=== PATIENT | male | born 1995 | race Caucasian/White ===

== ENCOUNTER 2022-04-16 13:58 | Emergency (ER) | payer BC, SELFPAY ==
[2022-04-16 14:16] VITALS: BP 128/61; PULSE 79; RESP 16; TEMP 36.8; O2SAT 99
[2022-04-16 14:20] VITALS: BP 128/61; PULSE 79; RESP 16; TEMP 36.8; O2SAT 99
--- NOTE | 2022-04-16 15:06 | ED.GENADULT ---
HPI - General Adult General Chief complaint: Unspecified Stated complaint: med refill Time Seen by Provider: 04/16/22 14:40 Source: patient, RN notes reviewed and old records reviewed Mode of arrival: ambulatory Limitations: no limitations History of Present Illness HPI narrative: 26-year-old male who presents to [facility] with complaints of losing his Seroquel and states he needs emergency refill.Patient reports that he lost his prescription a couple of days ago and has not been able to get his psychiatrist at [facility] to return his call. Told him I could only give a refill of 5 tabs.Instructed him that he needs his pharmacy to call [facility] to get ahold of psychiatrist and often no refills of medications are given over the weekends. MD complaint: refill of seroquel lost bottle Related Data Home Medications Medication Instructions Recorded Confirmed fluoxetine 20 mg tablet 20 mg PO DAILY 04/16/22 04/16/22 quetiapine 50 mg tablet 50 mg PO HS 04/16/22 04/16/22 Allergies Allergy/AdvReac Type Severity Reaction Status Date / Time No Known Allergies Allergy Verified 04/16/22 14:19 Review of Systems Review of Systems: CONSTITUTIONAL: Denies fever, chills, or sweats. EYES: Denies visual changes, redness, or discharge. ENT: Denies rhinorrhea, congestion, sore throat, or otalgia. CARDIOVASCULAR: Denies chest pain, palpitations, or edema. RESPIRATORY: Denies cough or dyspnea. GASTROINTESTINAL: Denies abdominal pain, nausea, vomiting, or diarrhea. GENITOURINARY: Denies dysuria or hematuria. SKIN: Denies rash or itching. MUSCULOSKELETAL: Denies back pain, joint pain, or myalgia. NEUROLOGIC: Denies headache, numbness, or weakness. PSYCHIATRIC: Positive history of anxiety or depression.Bipolar All systems reviewed & are unremarkable except as noted in HPI and below [facility] Past Medical History Medical History (Updated 04/19/22 @ 15:41 by Shonna Zuleta NP) Anxiety and depression Bipolar 1 disorder, mixed Social History Social History (Updated 04/19/22 @ 15:41 by Shonna Zuleta NP) Smoking status: Never smoker Alcohol intake: unknown Substance use: unknown Living arrangements: with family Gender identity (if verbalized by the patient): Male Comments At time of signature, agree with nursing past medical, surgical, social and family history. There is no relevant family history pertinent to the presenting complaint Exam Narrative: GENERAL: Well-appearing, well-nourished, and in no acute distress. HEAD: Normocephalic, atraumatic. EYES: PERRLA and EOMI. ENT: Nares clear, no rhinorrhea or epistaxis. Mucous membranes moist.TM's normal, throat pink with no lesions or swelling. NECK: Supple.no lymphadenopathy CHEST: Clear to auscultation. No respiratory distress.SAO2 99% on room air HEART: Regular rate and rhythm. No murmur heard. Normal peripheral pulses. ABDOMEN: Soft, nontender, nondistended, normal active bowel sounds. EXTREMITIES: Normal range of motion. No edema. SKIN: Warm, dry, no rash. NEURO: No focal deficits. Alert and oriented x3. Course Course Level of Care: Express Care Visit Vital Signs Vital signs: Vital Signs Temperature 36.8 C 04/16/22 14:16 Pulse Rate 79 04/16/22 14:16 Respiratory Rate 16 04/16/22 14:16 Blood Pressure 128/61 04/16/22 14:16 Pulse Oximetry 99 04/16/22 14:16 Oxygen Delivery Room Air 04/16/22 14:16 Temperature 36.8 C 04/16/22 14:20 Pulse Rate 79 04/16/22 14:20 Respiratory Rate 16 04/16/22 14:20 Blood Pressure 128/61 04/16/22 14:20 Pulse Oximetry 99 04/16/22 14:20 Oxygen Delivery Room Air 04/16/22 14:20 Medical Decision Making Differential Diagnosis Differential Diagnosis: need for medication refill, loss of medication reported, history of anxiety and depression and bipolar Medical Records Medical records reviewed: Yes I reviewed the external patient's medical records. Vital Signs Vital Signs: Vital Signs
== END 2022-04-16 15:18 | disposition home or self-care (01) ==
PROVIDERS: Emergency Provider Registered Nurse
DX: Z76.0 Encounter for issue of repeat prescription (principal); F31.9 Bipolar disorder, unspecified; F41.9 Anxiety disorder, unspecified
CPT/HCPCS: 99203; G0463

== ENCOUNTER 2024-12-28 18:07 | Emergency (ER) | payer SELFPAY ==
--- OUTSIDE RECORDS SUMMARY | 2024-12-28 18:11 | XMS_ITS | Patient Health Record ---
Author Organization [facility] Address [address] [place] [address] Care Team Providers Care Senior Financial Accountant Name Role Phone Rosalio Link Primary Care Provider Aspen Cabello Unavailable [phone] Alysha Ross Unavailable [phone] Scot Ayers Unavailable [phone] Lexi Reich Unavailable [phone] Karla Sarabia Unavailable Marie Benavides Unavailable [phone] Allergies No Known Allergies Results Component Value Reference Range Notes 12 Panel Urine Drug Screen Reviewed date:01/25/2024 02:32:46 PM Interpretation: Performing Lab: Notes/Report: THC neg NEYDA neg MOP (OPI) neg AMP neg MET neg BAR neg BZO neg MDMA neg MTD neg OXY neg PCP neg BUP POS Renal Panel (10) Reviewed date:01/25/2024 02:32:46 PM Interpretation: Performing Lab:[facility], [address] [facility], Phone - [phone], Director - PhrmD[facility]tek Notes/Report: Glucose 126 70-99 mg/dL BUN 15 6-20 mg/dL Creatinine 1.30 0.76-1.27 mg/dL eGFR 76 >59 mL/min/1.73 BUN/Creatinine Ratio 12 9-20 Sodium 139 134-144 mmol/L Potassium 4.3 3.5-5.2 mmol/L Chloride 100 96-106 mmol/L Carbon Dioxide, Total 22 20-29 mmol/L Calcium 10.0 8.7-10.2 mg/dL Phosphorus 3.3 2.8-4.1 mg/dL Albumin 5.1 4.3-5.2 g/dL Medication Assisted Treatmen t (MAT) Buprenorphine, Norbuprenorphine, and Naloxone MS Confirmation, Urine Reviewed date:01/25/2024 02:32:46 PM Interpretation: Performing Lab:[facility], [address] [place] [address], Phone - [phone], Director - [facility] Notes/Report: Creatinine 60 Note: Sample is inconsistent with human urine. Testing Threshold: buprenorphine, 1.0 ng/mL norbuprenorphine, 5.0 ng/mL naloxone, 10 ng/mL This test was developed and its performance characteristics determined by [facility]. It has not been cleared or approved by the Food and Drug Administration. REFERENCE RANGE: Ref Range>=20 BUPRENORPHINE ++POSITIVE++ Buprenorphine >1667 Norbuprenorphine 98 N/B Ratio <0.06 >=0.3 A Norbuprenorphine/Bupreno rphine ratio <0.30 in conjunction with buprenorphine concentrations >1000 ng/mL should be interpreted with caution, as this may result from adding the drug to the sample exogenously (pill dipping). Norbuprenorphine/Bupreno rphine ratios <0.03 are highly suspect. OPIATE ANTAGONIST ++POSITIVE++ Naloxone >1667 UA/M w/rflx Culture, Routine Reviewed date:01/25/2024 02:32:46 PM Interpretation: Performing Lab:[facility], [address] [place] [address], Phone - [phone], Director - [facility] Notes/Report: Specific Phenix 1.011 1.005-1.030 pH 7.5 5.0-7.5 Urine-Color Yellow Yellow Appearance Clear Clear WBC Esterase Negative Negative Protein Negative Negative/Trace Glucose Negative Negative Ketones Negative Negative Occult Blood Negative Negative Bilirubin Negative Negative Urobilinogen,Semi-Qn 0.2 0.2-1.0 mg/dL Nitrite, Urine Positive Negative Microscopic Examination See below: Micr oscopic was indicated and was performed. Urinalysis Reflex This speci men has reflexed to a Urine Culture. WBC None seen 0 - 5 /hpf RBC None seen 0 - 2 /hpf Epithelial Cells (non renal) None seen 0 - 10 /hpf Casts None seen None seen /lpf Crystals Present N/A Crystal Type Calcium Phosphate N/A Mucus Threads Present Not Estab. Bacteria Few None seen/Few Urine Culture, Routine Final report Result 1 No growth Renal Panel (10) Reviewed date:07/04/2024 02:56:06 PM Interpretation: Performing Lab:[facility] [address] [place] [address], Phone - [phone], Director - [facility] Notes/Report: Glucose 103 70-99 mg/dL BUN 11 6-20 mg/dL Creatinine 1.19 0.76-1.27 mg/dL eGFR 84 >59 mL/min/1.73 BUN/Creatinine Ratio 9 9-20 Sodium 139 134-144 mmol/L Potassium 5.1 3.5-5.2 mmol/L Chloride 99 96-106 mmol/L Carbon Dioxide, Total 25 20-29 mmol/L Calcium 9.9 8.7-10.2 mg/dL Phosphorus 2.8 2.8-4.1 mg/dL Albumin 4.6 4.3-5.2 g/dL Hepatitis B Surface Antigen (HBsAg Screen) Reviewed date:07/04/2024 02:56:17 PM Interpretation: Performing Lab:[facility] [address] [place] [address], Phone - [phone], Director - [facility] Notes/Report: HBsAg Screen Negative Negative Hepatitis C Virus Antibody w /Rflx to Quantitative Real-time PCR ([id number]) Reviewed date:07/04/2024 02:56:28 PM Interpretation: Performing Lab:[facility] [address], Phone - [phone], Director - [facility] Notes/Report: HCV Ab Non Reactive Non Reactive Interpretation: Not infected with HCV unless early or acute infection is suspected (which may be delayed in an immunocompromised individual), or other evidence exists to indicate HCV infection. HIV Screen *HIV 1, 2 Ab, p24 Ag ([id number]) Reviewed date:07/04/2024 02:56:39 PM Interpretation: Performing Lab:[facility] [address], Phone - [phone], [facility] Notes/Report: HIV Ab/p24 Ag Screen Non Reactive Non Reactive HIV-1/HIV-2 antibodies and HIV-1 p24 antigen were NOT detected. There is no laboratory evidence of HIV infection. HIV Negative Rapid Plasma Reagin (RPR) Te st With Reflex to Quantitative RPR and Confirmatory Treponema pallidum Antibodies Reviewed date:07/04/2024 02:56:59 PM Interpretation: Performing Lab:[facility], [address] [facility], Phone - [phone], Director - [facility] Notes/Report: RPR Non Reactive Non Reactive Herpes Simplex Virus Types 1 and 2 -specific Antibodies, IgG Reviewed date:07/04/2024 02:56:49 PM Interpretation: Performing Lab:[facility], [address] [facility], Phone - [phone], Director - [facility] Notes/Report: HSV 1 IgG, Type Spec 38.40 0.00-0.90 index Negative <0.91 Equivocal 0.91 - 1.09 Positive >1.09 Note: Negative indicates no antibodies detected to HSV-1. Equivocal may suggest early infection. If clinically appropriate, retest at later date. Positive indicates antibodies detected to HSV-1. Effective May 06, 2024 the reference interval will be changing to: Non Reactive. HSV 2 IgG, Type Spec <0.91 0.00-0.90 index Negative <0.91 Equivocal 0.91 - 1.09 Positive >1.09 HSV-2 Antibody Interpretation: Current guidelines and recommendations do not recommend routine screening for HSV-2 in asymptomatic individuals, including those that are . A negative antibody result indicates no detectable antibodies to HSV-2 were found. If recent exposure is suspected, retest in 4 to 6 weeks. Equivocal samples should be retested in 4 to 6 weeks. A positive result indicates the presence of detectable IgG antibody to HSV-2. FALSE POSITIVE RESULTS MAY OCCUR. Repeat testing, or testing by a different method, may be indicated in some settings (e.g. patients with low likelihood of HSV infection). If clinically appropriate, retest 4 to 6 weeks later. HSV-2 IgG antibody testing results should be clinically correlated. Effective May 06, 2024 the reference interval will be changing to: Non Reactive. 12 Panel Urine Drug Screen Reviewed date:02/23/2024 08:29:09 AM Interpretation: Performing Lab: Notes/Report: THC POS NEYDA neg MOP (OPI) neg AMP neg MET neg BAR neg BZO neg MDMA neg MTD neg OXY neg PCP neg BUP POS 12 Panel Urine Drug Screen Reviewed date:10/09/2024 03:17:40 PM Interpretation: Performing Lab: Notes/Report: THC neg NEYDA neg MOP (OPI) neg AMP neg MET neg BAR neg BZO neg MDMA neg MTD neg OXY neg PCP neg BUP POS Buprenorphine and Metabolite (Urine test) Reviewed date:03/01/2024 09:19:19 AM Interpretation: Performing Lab:[facility], [address] [facility], [place], Phone - [phone], Director - PhDAbudaishwarya Notes/Report: Clinical Information:[id number] Buprenorphine Positive Confirmation p erformed by Mass Spectrometry Buprenorphine Positive Buprenorphine Conf, MS, UR 123 Cutoff=10 ng/m L Norbuprenorphine Positive Norbuprenorphine Conf, MS, UR 238 Cutoff=10 ng/mL Medication Assisted Treatmen t (MAT) Buprenorphine, Norbuprenorphine, and Naloxone MS Confirmation, Urine Reviewed date:03/04/2024 03:42:18 PM Interpretation: Performing Lab:[facility], [address] [place] [address], Phone - [phone], Director - Luci Notes/Report: Creatinine 76 Testing Threshold: buprenorphine, 1.0 ng/mL norbuprenorphine, 5.0 ng/mL naloxone, 10 ng/mL This test was developed and its performance characteristics determined by [facility]. It has not been cleared or approved by the Food and Drug Administration. REFERENCE RANGE: Ref Range>=20 BUPRENORPHINE ++POSITIVE++ Buprenorphine 25 Norbuprenorphine 129 N/B Ratio 5.16 >=0.3 OPIATE ANTAGONIST ++POSITIVE++ Naloxone 63 12 Panel Urine Drug Screen Reviewed date:08/08/2024 02:38:51 PM Interpretation: Performing Lab: Notes/Report: THC neg NEYDA neg MOP (OPI) neg AMP neg MET neg BAR neg BZO neg MDMA neg MTD neg OXY neg PCP neg BUP POS 12 Panel Urine Drug Screen Reviewed date:10/31/2024 02:30:14 PM Interpretation: Performing Lab: Notes/Report: THC neg NEYDA neg MOP (OPI) neg AMP neg MET neg BAR neg BZO neg MDMA neg MTD neg OXY neg PCP neg BUP POS 12 Panel Urine Drug Screen Reviewed date:12/02/2024 02:08:12 PM Interpretation: Performing Lab: Notes/Report: THC neg NEYDA neg MOP (OPI) neg AMP neg MET neg BAR neg BZO neg MDMA neg MTD neg OXY neg PCP neg BUP POS Buprenorphine and Metabolite (Urine test) Reviewed date:12/05/2024 02:04:44 PM Interpretation: Performing Lab:[facility], [address], [facility], Phone - [phone], Director - PhDAbudu Notes/Report: Clinical Information:CCU:[id number] Buprenorphine Positive Confirmation p erformed by Mass Spectrometry Buprenorphine Positive Buprenorphine Conf, MS, UR 112 Cutoff=10 ng/m L Norbuprenorphine Positive Norbuprenorphine Conf, MS, UR 444 Cutoff=10 ng/mL 12 Panel Urine Drug Screen Reviewed date:07/01/2024 01:24:20 PM Interpretation: Performing Lab: Notes/Report: THC neg NEYDA neg MOP (OPI) neg AMP neg MET neg BAR neg BZO neg MDMA neg MTD neg OXY neg PCP neg BUP POS 12 Panel Urine Drug Screen Reviewed date:02/15/2024 08:23:29 AM Interpretation: Performing Lab: Notes/Report: THC POS NEYDA neg MOP (OPI) neg AMP neg MET neg BAR neg BZO neg MDMA neg MTD neg OXY neg PCP neg BUP POS 12 Panel Urine Drug Screen Reviewed date:09/11/2024 02:10:11 PM Interpretation: Performing Lab: Notes/Report: THC neg NEYDA neg MOP (OPI) neg AMP neg MET neg BAR neg BZO neg MDMA neg MTD neg OXY neg PCP neg BUP POS 12 Panel Urine Drug Screen Reviewed date:03/22/2024 02:11:44 PM Interpretation: Performing Lab: Notes/Report: THC neg NEYDA neg MOP (OPI) neg AMP neg MET neg BAR neg BZO neg MDMA neg MTD neg OXY neg PCP neg BUP POS Reason For Referral Reason ANGER, ANXIETY, STRE SS DUE TO WORK, FAMILY, RELATIONSHIP ISSUES Diagnosis 1 Generalized anxiety disorder (F41.1) Referral Organization [facility] Referring Provider First Name Lexi Referring Provider Last Name Damir Referring Provider Speciality Behavioral Health Referred Provider Specialty [facility] Clinical Notes Deedee Clifford 04/03/2024 02:42:21 PM >spoke with client and provided them the information to initiate therapy. Client was receptive and understood the instructions Referral Priority Routine Medications Medication SIG (Take, Route, Frequency, Duration) Notes Start Date End Date Status Narcan 4 MG/0.1ML 4mg as needed for op ioid overdose Nasally once 05/22/2023 Active Buprenorphine HCl-Naloxone HCl 8-2 MG 1 film under the tongue and allow to dissolve Sublingual THREE TIMES DAILY 12/02/2024 Active Docusate Sodium 100 MG 1 capsule as need ed Orally Once a day for 30 day(s) 12/02/2024 Active SEROquel 100 MG 1 tablet at bedtime Orally Once a day Active Ibuprofen 600 MG 1 tablet with food or milk as needed FOR PAIN Orally Three times a day As needed pain 05/22/2023 Active Nicotine Step 2 14 MG/24HR 1 patch to sk in Transdermal Once a day for 30 day(s) 12/02/2024 Active Tadalafil 5 MG 1 tablet as needed Orally Once a day for 30 days As needed at least 1-2 hours prior to sexual activity 10/04/2023 Active FLUoxetine HCl 20 MG 1 capsule Orally On ce a day for 30 days Active Social History Tobacco Use: Social History Observation Description Date Details (start date - stop date) Never Smoker NA - NA Sex Assigned At : Social History Observation Description Sex Assigned At Male PRAPARE Question Answer Notes Date Completed/Updated: 03/22/2024 What is your current housing situation? I have h ousing Are you worried about losing your housing? No What is the highest level of school that you have finished? 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 Check all that apply I do not have problems meeting my needs Has lack of transportation k ept you from medical appointments, meetings, work or from getting things needed for daily living? No How often do you see or talk to people that you care about and feel close to? (For example: talking to friends on the phone, visiting friends or family, going to yarsani or club meetings) More than 5 times a week How stressed are you? Stress is when someone feels tense, nervous, anxious, or can\t sleep at night because their mind is troubled Not at all In the past year have you sp ent more than 2 nights in a row in a long term, jail, correction center, or juvenile correctional facility? No Are you a refugee? No What country are you from? [place] Do you feel physically and e motionally safe where you currently live? Yes In the past year, have you b een afraid of your partner or ex-partner? No PRAPARE Score: 1 Tobacco Control (Standard) Question Answer Notes Tobacco use: Nonsmoker Section Notes: Problems Problem Type SNOMED Code ICD Code Onset Dates Problem Status W/U Status Risk Notes Problem Tobacco user (809628287) Nicotine dependence, unspecified, uncomplicated (F17.200) Active confirmed Problem Generalized anxiety disorder (53981427) Generalized anxiety disorder (F41.1) Active confirmed Problem 33472234 Tobacco dependence (F17.200) 021 Active confirmed chews, no smoking Problem Erectile dysfunction (643276367) Erectile dysfunction (N52.9) Active confirmed Problem Constipation (70882692) Constipation (K59.00) Active confirmed Problem Overweight (149647442) Over weight (E66.3) Active confirmed Problem Physical examination, complete (68090135) Physical exam (Z00.00) Active confirmed Problem Depressed (65116372) Depressed (F32.9) Active confirmed MDD vs Bipolar Affective Disorder Problem 712230971 Sleep difficulties (G47.9) Active confirmed Problem Methamphetamine abuse (629004222) 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 Problem Opioid abuse (7814086) Opiate abuse, episodic (F11.10) Active confirmed Problem Tobacco use (135207766) Tobacco use disorder (F17.200) Active confirmed Problem Opioid use disorder (7995977597) Opioid use disorder (F11.99) Active confirmed Problem 656650883 Cannabis-related disorder (F12.99) Active confirmed Problem 3503906 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 Problem chronic kidney disease stage 3a (disorder) (175766487) CKD stage G3a/A1, GFR 45-59 and albumin creatinine ratio <30 mg/g (N18.31) Active confirmed Vital Signs Heart Rate 80 /min 12/02/2024 Temperature 98.1 degrees Fahrenheit 12/02/2024 Respiratory Rate 16 /min 12/02/2024 Oximetry 97 % 12/02/2024 Blood pressure diastolic 72 mm Hg 12/02/2024 Height 71 in in 12/02/2024 Blood pressure systolic 110 mm Hg 12/02/2024 Weight 182.4 lbs 12/02/2024 BMI 25.44 kg/m2 12/02/2024 Encounters Encounter Location Date Provider Diagnosis [address] [address] 04/03/2024 Rosalio Link [address] [address] 01/15/2024 Rosalio Link Opioid use with opioid-induced disorder F11.99 ; CKD stage G3a/A1, GFR 45-59 and albumin creatinine ratio <30 mg/g N18.31 and Erectile dysfunction N52.[address] [address] 02/08/2024 Rosalio Link Nicotine dependence, unspecified, uncomplicated F17.200 and Opioid use with opioid-induced disorder F11.[address] [address] 02/15/2024 Marie Benavides Opioid use with opioid-induced disorder F11.99 ; Overweight (BMI 25.0-29.9) E66.3 and Nicotine dependence, unspecified, uncomplicated F17.[address] [address] 02/15/2024 Lexi Reich [address] [address] 02/23/2024 Alysha Ross Opioid use with opioid-induced disorder F11.99 ; Overweight (BMI 25.0-29.9) E66.3 and Tobacco use disorder F17.[address] [address] 02/23/2024 Lexi Reich [address] [address] 03/13/2024 Rosalio Link Nicotine dependence, unspecified, uncomplicated F17.200 ; Tendonitis M77.9 and Erectile dysfunction N52.[address] [address] 03/22/2024 Scot Ayers Opioid use disorder F11.99 and Nicotine dependence, unspecified, uncomplicated F17.[address] [place] [address] 03/22/2024 Lexi Reich [address] [address] 04/03/2024 Rosalio Link Generalized anxiety disorder F41.1 ; Exposure to potential infection Z20.9 ; CKD stage G3a/A1, GFR 45-59 and albumin creatinine ratio <30 mg/g N18.31 and Nutritional counseling Z71.3 [address] [place] [address] 04/12/2024 Rosalio Link Opioid use with opioid-induced disorder F11.[address] [place] [address] 05/22/2024 Rosalio Link Opioid use with opioid-induced disorder F11.[address] [address] 07/01/2024 Marie Szlufik Opioid use with opioid-induced disorder F11.99 and Nicotine dependence, unspecified, uncomplicated F17.[address] [address] 08/08/2024 Marie Szlufik Opioid use with opioid-induced disorder F11.[address] [place] [address] 09/11/2024 Rosalio Nikolay Opioid use with opioid-induced disorder F11.99 ; Sleep difficulties G47.9 ; Tendonitis M77.9 and Erectile dysfunction N52.[address] [place] [address] 10/09/2024 Marie Szlufik Opioid use disorder F11.99 [facility] [address] [place] [address] 10/31/2024 Rosalio Link Opioid use with opioid-induced disorder F11.99 ; Over weight E66.3 and Opioid use disorder F11.99 [facility] [address] [place] [address] 12/02/2024 Karla Sarabia Opioid use disorder F11.99 and Nicotine dependence, unspecified, uncomplicated F17.200 [facility] [address] [place] [address] 01/09/[address] [place] [address] 02/05/2024 [facility] [address] [place] [address] 04/12/[address] [place] [address] 05/09/2024 [facility] [address] [place] [address] 08/08/2024 Marie Benavides Assessments Encounter Date Diagnosis (ICD Code) Assessment Notes Treatment Notes Treatment Clinical Notes Section Notes 01/15/2024 Opioid use with opioid-induced disorder (ICD-10 - F11.99) 01/15/2024 CKD stage G3a/A1, GFR 45-59 and albumin creatinine ratio <30 mg/g (ICD-10 - N18.31) 02/08/2024 Nicotine dependence, unspecified, uncomplicated (ICD-10 - F17.200) 02/08/2024 Opioid use with opioid-induced disorder (ICD-10 - F11.99) WILL NEED ONE WEEK F/U WITH MAT SEND-OUT URINE 02/15/2024 Overweight (BMI 25.0-29.9) (ICD-10 - E66.3) 02/15/2024 Opioid use with opioid-induced disorder (ICD-10 - F11.99) 02/23/2024 Overweight (BMI 25.0-29.9) (ICD-10 - E66.3) 03/13/2024 Tendonitis (ICD-10 - M77.9) 03/22/2024 Nicotine dependence, unspecified, uncomplicated (ICD-10 - F17.200) 03/22/2024 Opioid use disorder (ICD-10 - F11.99) 04/03/2024 Generalized anxiety disorder (ICD-10 - F41.1) 02/23/2024 Opioid use with opioid-induced disorder (ICD-10 - F11.99) 03/13/2024 Nicotine dependence, unspecified, uncomplicated (ICD-10 - F17.200) 04/03/2024 Exposure to potential infection (ICD-10 - Z20.9) 04/12/2024 Opioid use with opioid-induced disorder (ICD-10 - F11.99) 05/22/2024 Opioid use with opioid-induced disorder (ICD-10 - F11.99) 07/01/2024 Nicotine dependence, unspecified, uncomplicated (ICD-10 - F17.200) 07/01/2024 Opioid use with opioid-induced disorder (ICD-10 - F11.99) 08/08/2024 Opioid use with opioid-induced disorder (ICD-10 - F11.99) 09/11/2024 Opioid use with opioid-induced disorder (ICD-10 - F11.99) 10/09/2024 Opioid use disorder (ICD-10 - F11.99) 09/11/2024 Sleep difficulties (ICD-10 - G47.9) 10/31/2024 Opioid use with opioid-induced disorder (ICD-10 - F11.99) 12/02/2024 Opioid use disorder (ICD-10 - F11.99) 12/02/2024 Nicotine dependence, unspecified, uncomplicated (ICD-10 - F17.200) 09/11/2024 Tendonitis (ICD-10 - M77.9) 10/31/2024 Over weight (ICD-10 - E66.3) 04/03/2024 CKD stage G3a/A1, GFR 45-59 and albumin creatinine ratio <30 mg/g (ICD-10 - N18.31) 03/13/2024 Erectile dysfunction (ICD-10 - N52.9) 02/23/2024 Tobacco use disorder (ICD-10 - F17.200) 02/15/2024 Nicotine dependence, unspecified, uncomplicated (ICD-10 - F17.200) 01/15/2024 Erectile dysfunction (ICD-10 - N52.9) 04/03/2024 Nutritional counseling (ICD-10 - Z71.3) 09/11/2024 Erectile dysfunction (ICD-10 - N52.9) 10/31/2024 Opioid use disorder (ICD-10 - F11.99) 02/15/2024 Other Client agrees to take medication as prescribed. Discussed medication side effects, adverse effects, risks, benefits, as well as interactions. Encouraged non-use of opioids and other illicit substances. Has naloxone. Understand that discontinuing buprenorphine increases the risk of overdose upon return to illicit opioid use. Know that that use of alcohol or benzodiazepines with buprenorphine increases the risk of overdose and . Education provided about safe storage of medications. Encourage participation in recovery groups/counseling services. Contact office with questions or concerns. 02/15/2024 Other Provided case management services to address social determinants of health needs and reduce barriers to health care services. 02/23/2024 Other Client agrees to take medication as prescribed. Discussed medication side effects, adverse effects, risks, benefits, as well as interactions. Encouraged non-use of opioids. Has naloxone. Recommended participation in recovery groups/counseling services. Agrees to contact office with questions or concerns. 02/23/2024 Other Provided case management services to address social determinants of health needs and reduce barriers to health care services. 03/22/2024 Other Provided case management services to address social determinants of health needs and reduce barriers to health care services. 05/22/2024 Other Agreed to complete [employer] papers for work due to intermittent issues with CTS and tendonitis. He will email them from at his job. 07/01/2024 Other Patient agrees to take medication as prescribed. Discussed medication side effects, adverse effects, risks, benefits, as well as interactions. Encouraged non-use of opioids and other illicit substances. Has naloxone. Discontinuing buprenorphine increases the risk of overdose upon return to illicit opioid use. Use of alcohol or benzodiazepines with buprenorphine increases the risk of overdose and . Education provided about safe storage of medications. Encouraged participation in recovery groups/counseling services. Contact office with questions or concerns. 08/08/2024 Other Patient agrees to take medication as prescribed. Discussed medication side effects, adverse effects, risks, benefits, as well as interactions. Encouraged non-use of opioids and other illicit substances. Has naloxone. Discontinuing buprenorphine increases the risk of overdose upon return to illicit opioid use. Use of alcohol or benzodiazepines with buprenorphine increases the risk of overdose and . Education provided about safe storage of medications. Encouraged participation in recovery groups/counseling services. Contact office with questions or concerns. 10/09/2024 Other Patient agrees to take medication as prescribed. Discussed medication side effects, adverse effects, risks, benefits, as well as interactions. Encouraged non-use of opioids and other illicit substances. Has naloxone. Discontinuing buprenorphine increases the risk of overdose upon return to illicit opioid use. Use of alcohol or benzodiazepines with buprenorphine increases the risk of overdose and . Education provided about safe storage of medications. Encouraged participation in recovery groups/counseling services. Contact office with questions or concerns. Patient may self-administer their own medications or may self-administer their own oral medications per [place] Protocol. 12/02/2024 Other Patient agrees to take medication as prescribed. Discussed medication side effects, adverse effects, risks, benefits, as well as interactions. Encouraged non-use of opioids. Encouraged participation in recovery groups. Patient may contact office with questions or concerns. Plan Of Treatment No Information Insurance Providers Payer Name Payer Address Payer Phone Subscriber Number Group Number Insured Name Patient Relationship to Insured Coverage Start Date Coverage End Date [facility] Plan [address] [place] [id number] [employer] - patient is the insured 1 [employer] [facility] [address] [place] [address] [id number] [employer] Self - patient is the insured [address] [address] [id number] 2 [employer] Self - patient is the insured 1 Medical (General) History Medical History History ICD Code Substance Use disorder Bipolar Surgical History Surgery Date(Month/Year) ORIF Jaw Hospitalization History Reason Date(Month/Year) Denies
--- OUTSIDE RECORDS SUMMARY | 2024-12-28 18:11 | XMS_ITS | Clinical Summary ---
Author Organization [facility] Address [address] [place] [address] Care Team Providers Care Furnace Maintenance Name Role Phone Miscellaneous, Not In File Primary Care Provider Unavailable Allergies No known active allergies Medications traMADoL (ULTRAM) 50 mg tabletIndicati ons:De Quervain's tenosynovitis, left,Left median nerve neuropathy Take 1 tablet (50 mg total) by mouth every 6 (six) hours P.r.n. pain not relieved by Medrol Dosepak alone. Take 500 mg to 650 mg of acetaminophen with each dose. Take with food. 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 Open fracture of symphysis of body of mandible 0 03/27/2015 Poisoning by methamphetamines Pneumonia of both lungs due to infectious organi sm Immunizations Immunization Administration Dates Next Due Tdap 06/26/2022 Surgical History Surgery Date Site/Laterality Comments PA OPEN TX MANDIBULAR FX W/INTERDENTAL FIXATION Open Treatment Of Mandibular Frac With Interdental Fixation - (Added by TW Conv) Social History Tobacco Use Types Packs/Day Years Used Date Smoking Tobacco: Former Cigarettes Smokeless Tobacco: Never Alcohol Use Standard Drinks/Week Comments No 0 (1 standard drink = 0.6 oz pur e alcohol) Personal Safety Answer Date Recorded Have you ever been in or are you currently in a harmful physical or emotional relationship or is someone making you feel afraid or unsafe? Denies 08/11/2024 Sex and Gender Information Value Date Recorded Sex Assigned at Not on file Legal Sex Male 8:39 AM CONSTRUCTION MANAGER Gender Identity Not on file Sexual Orientation Not on file Obstetrics History Last Filed Vital Signs Vital Sign Reading Time Taken Comments Blood Pressure 130/109 08/11/2024 3:35 PM CONSTRUCTION MANAGER Pulse 91 08/11/2024 3:35 PM CONSTRUCTION MANAGER Temperature 36.7 C (98 F) 08/11/2024 3:35 PM CONSTRUCTION MANAGER Respiratory Rate 19 08/11/2024 3:35 PM CONSTRUCTION MANAGER Oxygen Saturation 96% 08/11/2024 3:35 PM CONSTRUCTION MANAGER Inhaled Oxygen Concentration - - Weight 83.9 kg (185 lb) 08/03/2024 3:48 AM CONSTRUCTION MANAGER Height 182.9 cm (6') 06/05/2024 7:13 AM CONSTRUCTION MANAGER Body Mass Index 25.09 06/05/2024 7:13 AM CONSTRUCTION MANAGER Plan of Treatment Health Maintenance Due Date Last Done Comments Depression Screening 1993 Hepatitis C Screening 1993 Varicella Vaccines (1 of 2 - 13+ 2-dose series) 2006 HPV Vaccines (3 - Male 3-dose series) 09/25/2010 05/25/2010, 03/25/2010 Regular Well Visit/Exam 18-64 11/24/2011 Influenza Vaccine (Season Ended) 2025 05/25/2010 DTaP/Tdap/Td Vaccine (8 - Td or Tdap) 06/26/2032 06/26/2022, 09/17/2009, 12/25/1998, Additional history exists Hepatitis B Screening Completed 03/21/1994 , 01/24/1994, 1993 Pneumococcal vaccine <65 Aged Out No longer eligible based on patient's age to complete this topic Insurance [facility] MEDICAID IDPA [facility] MEDICAID ANTHEM ACCESS CHOICE IDPA [facility] PLAN JARRETT GUERRA [id number] Advance Directives For more information, please contact: [phone] * Full Code (Latest Code Status on File) Date Activated Date Inactivated Comments 04/02/2018 6:08 PM 04/11/2018 12:23 PM Care Teams Furnace Maintenance Relationship Specialty Start Date End Date Miscellaneous, Not In File PCP - General 12/30/22
--- OUTSIDE RECORDS SUMMARY | 2024-12-28 18:11 | XMS_ITS | Clinical Summary ---
Author Organization [facility] Address [address] [place] [address] Phone Care Team Providers Care High Pressure Cleaner Name Role Phone Provider, None Primary Care Provider Unavailabl e Allergies No known active allergies Medications No known medications Social History Tobacco Use Types Packs/Day Years Used Date Smoking Tobacco: Former Cigarettes Smokeless Tobacco: Never Tobacco Cessation:Counseling Given: Not Answered Alcohol Use Standard Drinks/Week Comments No 0 (1 standard drink = 0.6 oz pur e alcohol) Sex and Gender Information Value Date Recorded Sex Assigned at Not on file Legal Sex Male 9:13 PM CDT Gender Identity Not on file Sexual Orientation Not on file Last Filed Vital Signs Vital Sign Reading Time Taken Comments Blood Pressure 145/75 09/12/2022 12:00 PM PHYSICAL THERAPIST TECHNICIAN Pulse 98 09/12/2022 12:00 PM PHYSICAL THERAPIST TECHNICIAN Temperature 37 C (98.6 F) 09/12/2022 12:00 PM PHYSICAL THERAPIST TECHNICIAN Respiratory Rate 20 09/12/2022 12:00 PM PHYSICAL THERAPIST TECHNICIAN Oxygen Saturation 100% 09/12/2022 12:00 PM PHYSICAL THERAPIST TECHNICIAN Inhaled Oxygen Concentration - - Weight 77.1 kg (170 lb) 09/12/2022 7:05 AM PHYSICAL THERAPIST TECHNICIAN Height 182.9 cm (6') 09/12/2022 7:05 AM PHYSICAL THERAPIST TECHNICIAN Body Mass Index 23.06 09/12/2022 7:05 AM PHYSICAL THERAPIST TECHNICIAN Plan of Treatment Not on file Insurance MEDICAID [place] Care Teams High Pressure Cleaner Relationship Specialty Start Date End Date Provider, None ANDREA PCP - General 07/06/16
--- OUTSIDE RECORDS SUMMARY | 2024-12-28 18:11 | XMS_ITS | Referral Summary ---
Author Organization [facility] Address [address] [place] [address] Care Team Providers Care Analysis Internship Name Role Phone Miscellaneous, Not In File [...] Immunization Administration Dates Next Due Tdap 06/26/2022 Social History Tobacco Use Types Packs/Day Years [...] on file Legal Sex Male 8:39 AM FREIGHT RATE CLERK Gender Identity Not on file Sexual Orientation Not on file Last Filed Vital Signs Vital Sign Reading Time Taken Comments Blood Pressure 130/109 08/11/2024 3:35 PM FREIGHT RATE CLERK Pulse 91 08/11/2024 3:35 PM FREIGHT RATE CLERK Temperature 36.7 C (98 F) 08/11/2024 3:35 PM FREIGHT RATE CLERK Respiratory Rate 19 08/11/2024 3:35 PM FREIGHT RATE CLERK Oxygen Saturation 96% 08/11/2024 3:35 PM FREIGHT RATE CLERK Inhaled Oxygen Concentration - - Weight 83.9 kg (185 lb) 08/03/2024 3:48 AM FREIGHT RATE CLERK Height 182.9 cm (6') 06/05/2024 7:13 AM FREIGHT RATE CLERK Body Mass Index 25.09 06/05/2024 7:13 AM FREIGHT RATE CLERK Plan of Treatment Not on file Insurance [facility] MEDICAID IDPA [facility] MEDICAID ANTHEM ACCESS CHOICE IDPA [facility] PLAN Advance Directives For more information, please contact: [phone] * Full Code (Latest Code Status on File) Date Activated Date Inactivated Comments 04/02/2018 6:08 PM 04/11/2018 12:23 PM Care Teams Analysis Internship Relationship Specialty Start Date End Date Miscellaneous, Not In File PCP - General 12/30/22
--- OUTSIDE RECORDS SUMMARY | 2024-12-28 18:11 | XMS_ITS | Patient Health Record ---
Author Organization [employer] [facility] Address [address] [place] [address] Support Name Relationship Address Phone Gary Good Guarantor Unknown [phone] Allergies No Known Allergies Reason For Referral No Information Social History Tobacco Use: Social History Observation Description Date Details (start date - stop date) Never Smoker NA - NA Smoking Question Answer Notes Smoking Status: nonsmoker Plan Of Treatment Pending Test Test Name Order Date Urinalysis, Routine 07/26/2021 Vision Screening 07/26/2021 Hearing Screening 07/26/2021 PFT 07/26/2021 DOT DRUG SCREEN 07/26/2021 RAPID READ DRUG SCREEN 07/26/2021 Insurance Providers Payer Name Payer Address Payer Phone Subscriber Number Group Number Insured Name Patient Relationship to Insured Coverage Start Date Coverage End Date Brandin Pisek PRE-EMP/RTW [place], [place] [id number] [phone] Good Vega Self - patient is the insured Medical (General) History Surgical History Surgery Date(Month/Year)
--- OUTSIDE RECORDS SUMMARY | 2024-12-28 18:11 | XMS_ITS | CONTINUITY OF CARE DOCUMENT ---
Author Name ed jefflupis Address Unknown Organization [facility] Address [address] [place] [address] Phone [phone] Care Team Providers Care Laboratory Technologist Name Role Phone Macario Lofton MD Unavailable RACHEL LOCKE MD Unavailable RACHEL LOCKE MD Unavailable [phone] INSURANCE PROVIDERS Payer name Policy type / Coverage type [place] red alliance party ID [facility] Medicaid [id number] HEALTHCARE AND FAMILY SERVICES Medicaid 0 [id number]
--- OUTSIDE RECORDS SUMMARY | 2024-12-28 18:14 | XMS_ITS | CONTINUITY OF CARE DOCUMENT ---
Author Name ed jefflupis Address Unknown Organization [facility] Address [address] [place] [address] Phone [phone] Care Team Providers Care Software Reliability Engineer Name Role Phone Macario Lofton MD Unavailable RACHEL LOCKE MD Unavailable RACHEL LOCKE MD Unavailable INSURANCE PROVIDERS Payer name Policy type / Coverage type [place] red republican ID [facility] Medicaid [id number] HEALTHCARE AND FAMILY SERVICES Medicaid 0 [id number]
[2024-12-28 18:17] VITALS: BP 131/76; PULSE 124; RESP 20; TEMP 36.9; O2SAT 100
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
== END 2024-12-28 18:57 | disposition left against medical advice (07) ==
PROVIDERS: Emergency Provider Registered Nurse; PCP Internal Medicine
DX: Z53.21 Procedure and treatment not carried out due to patient leaving prior to being seen by health care provider (principal)
CPT/HCPCS: 99199

== ENCOUNTER 2025-01-17 17:54 | Emergency (ER) | payer SELFPAY ==
[2025-01-17 17:57] VITALS: BP 138/71; PULSE 79; RESP 18; TEMP 36.8; O2SAT 100
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
== END 2025-01-17 18:22 | disposition short-term general hospital (02) ==
LOC: EXPBETH 17:55
PROVIDERS: PCP Internal Medicine
DX: S91.109A Unspecified open wound of unspecified toe(s) without damage to nail, initial encounter (principal); L97.519 Non-pressure chronic ulcer of other part of right foot with unspecified severity; X58.XXXA Exposure to other specified factors, initial encounter
CPT/HCPCS: 99212; G0463